=== PATIENT | male | born 1990 | race African-American/Black ===

== ENCOUNTER 2019-06-30 16:01 | Emergency (ER) | payer BC ==
[~2019-06-30] VITALS: Ht 188 cm; Wt 103.0 kg
[2019-06-30] MEDS ORDERED: HYDROCODONE/ACETAMINOPHEN 5/325MG TABLET PO STA (18:56)
[2019-06-30 19:19] LABS: BASOPHILS % 0.4 % (0.0-2.0); EOSINOPHILS % 1.3 % (0.0-5.0); HEMATOCRIT. 44.7 % (42.0-52.0); HEMOGLOBIN. 15.1 g/dL (14.0-18.0); LYMPHOCYTES % 34.2 % (20.0-50.0); MEAN PLATELET VOLUME 8.8 fl (7.4-10.4); MONOCYTES % 6.9 % (2.0-8.0); NEUTROPHILS % 57.2 % (40.0-76.0); PLATELET 262 x1000/uL (130-400); RED BLOOD CELL COUNT 5.38 mill/uL (4.7-6.1); RED CELL DISTRIBUTION WIDTH 13.4 % (11.6-14.6)
[2019-06-30 19:22] LABS: CHLORIDE 105 mEq/L (98-107)
[2019-06-30 20:56] VITALS: BP 162/109
== END 2019-06-30 21:01 | disposition home or self-care (01) ==
LOC: ER 16:01
DX: R07.89 Other chest pain (principal); I10 Essential (primary) hypertension; Z87.828 Personal history of other (healed) physical injury and trauma; Z93.3 Colostomy status; Z98.890 Other specified postprocedural states
CPT/HCPCS: 36415; 71045; 80053; 84484; 85025; 85379; 99285